=== PATIENT | male | born 1975 | race Caucasian/White ===

== ENCOUNTER 2024-02-27 09:54 | Day surgery (SDC) | payer OTHER ==
[~2024-02-27] VITALS: Ht 182.9 cm; Wt 88.5 kg
[2024-02-27] MEDS ORDERED: fentaNYL citrate 0.05 MG/ML VIAL ONE (11:42)
[2024-02-27] MEDS ORDERED: MIDAZOLAM 2 MG/2 ML VIAL ONE (11:42)
[2024-02-27] MEDS: MIDAZOLAM 2 MG/2 ML VIAL IVP ONE (11:49)
[2024-02-27] MEDS: fentaNYL citrate 0.05 MG/ML VIAL IVP ONE (11:50)
[2024-02-27] MEDS: LIDOCAINE 2% 100 MG/5 ML UJET TP ONE (12:05)
== END 2024-02-27 13:45 | disposition home or self-care (01) ==
LOC: MDS 09:54 → MMU 09:56 → MDS 13:45
PROVIDERS: ATTEND Internal Medicine Gastroenterology
DX: Z12.11 Encounter for screening for malignant neoplasm of colon (principal); K63.5 Polyp of colon; K57.30 Diverticulosis of large intestine without perforation or abscess without bleeding; K21.00 Gastro-esophageal reflux disease with esophagitis, without bleeding; I10 Essential (primary) hypertension
CPT/HCPCS: 36415; 43239; 45385; 86677; J2250; J3010